=== PATIENT | female | born 1970 | race Caucasian/White ===

== ENCOUNTER → 2016-12-13 | Outpatient (CLI) | payer MEDICARE, OTHER ==
[~2016-12-13] MED LIST: ATIVAN0.5 MG PO; Ativan PO; CYANOCOBAL1000 MCG/2 IM; Colace PO; MSIR PO; Motrin PO; NAPROXEN500 MG PO; Proventil,Ventolin H IH; Sudafed PO; VENTOLIN HFA18 GM IH; Vitamin B-12 IM; WELLBUTRIN XL300 MG PO; Wellbutrin XL PO; ZOFRAN4 MG PO; ZONEGRAN100 MG PO; Zonegran PO
== END | disposition home or self-care (01) ==
LOC: CDC 10:31
DX: Z01.810 Encounter for preprocedural cardiovascular examination (principal); R06.02 Shortness of breath
CPT/HCPCS: 93000